=== PATIENT | male | born 1970 | race Caucasian/White ===

== ENCOUNTER 2018-02-18 07:03 | Day surgery (SDC) | payer OTHER ==
[~2018-02-18 07:03] MED LIST: CEFAZOLIN 2 GM/50 ML (PMX) 50 ML IVPB; EPHEDrine SULFATE 50 MG/5 ML SYG; SOD CHLORIDE 0.9% 1,000 ML IV
[2018-02-18] MEDS ORDERED: OXYCODONE/ACETAMINOPHEN (5/325) TAB PO (09:30)
[2018-02-18] MEDS ORDERED: ONDANSETRON 4 MG INJ IV (09:30)
[2018-02-18] MEDS ORDERED: PROCHLORPERAZINE 10 MG INJ IV (09:30)
[2018-02-18] MEDS ORDERED: DIPHENHYDRAMINE 50 MG INJ IV (09:30)
[2018-02-18] MEDS ORDERED: HYDROmorphONE 1 MG/5 ML IV SYRINGE IV ×3 (09:30)
[2018-02-18] MEDS ORDERED: FENTAnyl 50 MCG/ML VIAL IV ×3 (09:30)
[2018-02-18] MEDS ORDERED: MEPERIDINE 25 MG INJ IV (09:30)
[2018-02-18] MEDS ORDERED: FENTAnyl 50 MCG/ML VIAL (09:34)
[2018-02-18] MEDS ORDERED: MIDAZOLAM 1 MG/ML 2 ML INJ (09:34)
[2018-02-18] MEDS ORDERED: LIDOCAINE 2% (SDV) 5 ML INJ (09:58)
[2018-02-18] MEDS ORDERED: PROPOFOL 20 ML (09:58)
[2018-02-18] MEDS ORDERED: CEFAZOLIN 1 GM INJ (10:11)
[2018-02-18] MEDS ORDERED: FAMOTIDINE 20 MG INJ (10:15)
[2018-02-18] MEDS ORDERED: DEXAMETHASONE 4 MG/ML 1 ML INJ (10:15)
[2018-02-18] MEDS ORDERED: ONDANSETRON 4 MG INJ (10:15)
== END 2018-02-18 12:28 | disposition home or self-care (01) ==
LOC: SDS 07:03
DX: D17.1 Benign lipomatous neoplasm of skin and subcutaneous tissue of trunk (principal); R73.03 Prediabetes; E78.5 Hyperlipidemia, unspecified; F17.200 Nicotine dependence, unspecified, uncomplicated
CPT/HCPCS: 14000; 88307